=== PATIENT | female | born 1990 | race Caucasian/White ===

== ENCOUNTER 2016-08-23 10:24 | Emergency (ER) | payer SELFPAY | END 2016-08-23 12:24 | disposition home or self-care (01) | LOC: CFTX 10:24 → CED 10:24 → CFTX 11:44 | DX: S01.411A Laceration without foreign body of right cheek and temporomandibular area, initial encounter (principal); S01.81XA Laceration without foreign body of other part of head, initial encounter; S20.319A Abrasion of unspecified front wall of thorax, initial encounter; V49.00XA Driver injured in collision with unspecified motor vehicles in nontraffic accident, initial encounter | CPT/HCPCS: 12011; 99283 ==